=== PATIENT | male | born 2000 | race Caucasian/White ===

== ENCOUNTER 2024-08-27 08:56 | Outpatient (CLI) | payer BC ==
[2024-08-27] MEDS ORDERED: Magnevist 469MG/ML 20 ML VIAL ONE (10:10)
== END 2024-08-27 08:57 | disposition home or self-care (01) ==
LOC: CSHMRI 08:56
PROVIDERS: ATTEND Family Medicine
DX: K83.8 Other specified diseases of biliary tract (principal); N28.89 Other specified disorders of kidney and ureter; K76.0 Fatty (change of) liver, not elsewhere classified
CPT/HCPCS: 74183; 76376